=== PATIENT | male | born 1990 | race Caucasian/White ===

== ENCOUNTER 2025-04-19 11:30 | Emergency (ER) | payer BC ==
[~2025-04-19] VITALS: Ht 185.4 cm; Wt 69.9 kg
[~2025-04-19 11:30] MED LIST: ATARAX,VISTARIL50 MG PO; CARBIDOPA/LEVOD1 TA1 PO; CLONAZEPAM0.25 MG PO; MIRTAZAPINE15 MG PO; ONCE-DAILY WEL150 MG PO; ONDANSETRON HYDR4 M1 PO; PLACEBO #001 EACH PO; REMERON30 MG PO; SINEMET 25-100M1 TAB PO; ZOFRAN 4 MG ED2 TAB PO; ZYPREXA5 MG PO
[2025-04-19] MEDS ORDERED: SODIUM CHLORIDE 0.9% 1,000 ML IV ONE (11:55)
[2025-04-19] MEDS ORDERED: IOHEXOL 300 MG/ML 100 ML VIAL IV ONE (11:55)
[2025-04-19 12:09] LABS: BASO # 0.0 10*3/uL (0.0-0.1); BASO % 0.2 % (0.0-1.0); EOS # 0.1 10*3/uL (0.0-0.4); EOS % 1.7 % (1.0-4.0); MEAN CELL VOLUME 88.9 fl (80.0-94.0); MEAN CORPUSCULAR HGB 28.3 pg (27.0-31.0); MEAN PLATELET VOLUME 9.7 fl (9.6-12.3); MONO # 0.3 10*3/uL (0.1-1.0); MONO % 8.2 % (3.0-9.0); NEUT # 2.1 10*3/uL (2.3-7.9); NEUT % 53.1 % (47.0-73.0); NUCLEATED RED BLOOD CELL 0.0 % (0.0-0.0); NUCLEATED RED BLOOD CELL 0.0 10*3/uL (0.0-0.0); PLATELET COUNT AUTOMATED 305 10*3/uL (130-400); RED CELL DISTRI WIDTH 12.6 % (0-14.5)
[2025-04-19] MEDS ORDERED: IOHEXOL 300 MG/ML 100 ML VIAL ONE (12:22)
[2025-04-19 12:30] LABS: BUN 12 mg/dl (9-23)
[2025-04-19] MEDS ORDERED: MAGNESIUM CITRATE 296 ML BOT PO ONE (13:30)
== END 2025-04-19 16:54 | disposition home or self-care (01) ==
LOC: ED 11:30
PROVIDERS: Nurse Practitioner Family
DX: K59.00 Constipation, unspecified (principal); F41.9 Anxiety disorder, unspecified; R10.9 Unspecified abdominal pain; Z88.0 Allergy status to penicillin; Z86.19 Personal history of other infectious and parasitic diseases